=== PATIENT | female | born 1940 | race African-American/Black ===

== ENCOUNTER 2019-09-04 11:06 | Observation (INO) ==
[2019-09-04 12:19] LABS: Basophils # 0.1 10*3/uL (0.0-0.2); Basophils % 0.4 % (0.0-0.8); Eosinophils # 0.6 10*3/uL (0.0-0.87); Eosinophils % 4.5 % (0.00-10.9); Hematocrit 33.8 VOL% (35.7-47.0); Hemoglobin 11.1 GM/DL (12.0-16.0); Immature Granulocytes % 0.6 %; Immature Granulocytes Absolute 0.08 #; Lymphocytes # 2.3 10*3/uL (1.4-4.0); Lymphocytes % 16.2 % (21.3-54.2); Mean Corpuscular HGB Conc 32.8 GM/DL (32-36); Mean Corpuscular Volume 80.7 FL (87-102); Mean Platelet Volume 9.2 FL (9.6-12.0); Monocytes % 3.6 % (1.7-12.7); Neutrophils % 74.7 % (38.7-73.9); Platelet Count 246 T/CUMM (130-400); Red Blood Count 4.19 MC/CUMM (3.8-5.5); Red Cell Distribution Width 16.4 % (9.3-17.3); White Blood Count 14.1 T/CUMM (4-12)
[2019-09-04 12:30] LABS: Albumin 3.4 G/DL (3.4-5.0); Bilirubin,Total 0.5 MG/DL (0.2-1.0); Calcium 9.3 MG/DL (8.5-10.1); Osmolality,Calculated 294.3 MOS/KG (273-304)
[2019-09-04 13:28] LABS: ABG Base Excess -3.3 MMOL/L (-2.5-2.5); ABG HCO3 21.7 MMOL/L (20-26); ABG Oxygen Saturation 98.1 % (95-100); ABG PH 7.401 (7.35-7.45); ABG TCO2 17.1 MMOL/L (23-27); Allen Test Positive
[2019-09-04] MEDS ORDERED: ALBUTEROL/IPRATROPIUM 3 ML NEB RESP TX PRN (13:39)
[2019-09-04] MEDS ORDERED: ONDANSETRON 4 MG/2 ML VIAL IV PRN (15:40)
[2019-09-04] MEDS ORDERED: ACETAMINOPHEN 325 MG TABLET PO PRN (15:40)
[2019-09-04] MEDS ORDERED: BISACODYL 5 MG TABLET PO PRN (15:40)
[2019-09-04] MEDS ORDERED: NITROGLYCERIN SL 0.4 MG TABLET SL PRN (15:44)
[2019-09-04] MEDS ORDERED: SODIUM CHLORIDE 0.9% 1,000 ML IV SCH (16:00)
[2019-09-04 16:17] LABS: Risk Ratio 2.75; VLDL CHOLESTEROL 22.4 MG/DL
[2019-09-04] MEDS ORDERED: clonazePAM 0.5 MG TABLET PO PRN (18:00)
[2019-09-04] MEDS: ALBUTEROL/IPRATROPIUM 3 ML NEB RESP TX SCH (19:50)
[2019-09-04] MEDS ORDERED: LOSARTAN 50 MG TABLET PO SCH (21:00)
[2019-09-04] MEDS: SODIUM CHLORIDE 0.45% 1,000 ML IV SCH (21:45)
[2019-09-04] MEDS: cefTRIAXone 1,000 MG in SYRINGE 1 EACH IV SCH (21:46)
[2019-09-04] MEDS: AZITHROMYCIN INJ 500 MG in SODIUM CHLORIDE 0.9% 250 ML IV SCH (21:46)
[2019-09-04] MEDS: DOCUSATE SODIUM 100 MG CAPSULE PO SCH (21:47)
[2019-09-04] MEDS: ENOXAPARIN 30 MG/0.3 ML SYRINGE SUBCUT SCH (21:47)
[2019-09-04] MEDS: BENZONATATE 100 MG CAPSULE PO SCH (21:47)
[2019-09-04] MEDS: SIMVASTATIN 20 MG TABLET PO SCH (21:51)
[2019-09-04 23:46] LABS: Apearance,Urine CLEAR (Clear); Bacteria,Urine Occasional /HPF (Few); Bilirubin,Urine Negative (Negative); Blood, Urine Negative (Negative); Glucose,Urine (UA) Negative (Negative); Ketones,Urine Negative (Negative); Nitrite,Urine Negative (Negative); Protein,Urine Negative; RBC,Urine 3 /HPF (0-4); Squamous Epithelial Cell,Urine Occasional /HPF (0-10); Urine Color Straw (Yellow); Urine Urobilinogen < 2.0 EU/DL (0.2-1.0); WBC,Urine 7 /HPF (0-6)
[2019-09-05] MEDS: ALBUTEROL/IPRATROPIUM 3 ML NEB RESP TX SCH ×4 (00:40→20:13)
[2019-09-05 05:26] LABS: Basophils # 0.1 10*3/uL (0.0-0.2); Basophils % 0.4 % (0.0-0.8); Eosinophils # 0.5 10*3/uL (0.0-0.87); Eosinophils % 3.9 % (0.00-10.9); Hemoglobin 10.1 GM/DL (12.0-16.0); Immature Granulocytes % 0.4 %; Immature Granulocytes Absolute 0.05 #; Lymphocytes # 2.4 10*3/uL (1.4-4.0); Lymphocytes % 18.6 % (21.3-54.2); Mean Corpuscular HGB Conc 32.6 GM/DL (32-36); Mean Corpuscular Volume 81.2 FL (87-102); Mean Platelet Volume 9.5 FL (9.6-12.0); Monocytes % 5.5 % (1.7-12.7); Neutrophils % 71.2 % (38.7-73.9); Platelet Count 226 T/CUMM (130-400); Red Blood Count 3.82 MC/CUMM (3.8-5.5); Red Cell Distribution Width 16.4 % (9.3-17.3); White Blood Count 12.7 T/CUMM (4-12)
[2019-09-05 05:58] LABS: Calcium 8.7 MG/DL (8.5-10.1); Osmolality,Calculated 297.1 MOS/KG (273-304)
[2019-09-05] MEDS ORDERED: ALLOPURINOL 100 MG TABLET PO SCH (09:00)
[2019-09-05] MEDS: predniSONE 20 MG TABLET PO SCH (09:14)
[2019-09-05] MEDS: BENZONATATE 100 MG CAPSULE PO SCH ×3 (09:14→21:35)
[2019-09-05] MEDS: DOCUSATE SODIUM 100 MG CAPSULE PO SCH ×2 (09:15→21:35)
[2019-09-05] MEDS: cloNIDine 0.1 MG TABLET PO SCH (09:15)
[2019-09-05] MEDS: PANTOPRAZOLE 40 MG TABLET PO SCH (09:15)
[2019-09-05] MEDS: ASPIRIN EC 81 MG TABLET PO SCH (09:15)
[2019-09-05] MEDS: METOPROLOL SUCCINATE XL 50 MG TABLET PO SCH (09:15)
[2019-09-05] MEDS: OMEGA 3 ACID ETHYL ESTERS 1 GM CAPSULE PO SCH (09:15)
[2019-09-05] MEDS: SODIUM CHLORIDE 0.45% 1,000 ML IV SCH ×2 (16:03→18:01)
[2019-09-05] MEDS: AZITHROMYCIN INJ 500 MG in SODIUM CHLORIDE 0.9% 250 ML IV SCH (21:35)
[2019-09-05] MEDS: cefTRIAXone 1,000 MG in SYRINGE 1 EACH IV SCH (21:35)
[2019-09-05] MEDS: ENOXAPARIN 30 MG/0.3 ML SYRINGE SUBCUT SCH (21:35)
[2019-09-05] MEDS: guaiFENesin/DM ER 600-30 MG TABLET PO PRN (21:35)
[2019-09-05] MEDS: SIMVASTATIN 20 MG TABLET PO SCH (21:35)
[2019-09-06] MEDS: ALBUTEROL/IPRATROPIUM 3 ML NEB RESP TX SCH ×2 (00:42→07:39)
[2019-09-06 05:52] LABS: Basophils % 0.1 % (0.0-0.8); Hematocrit 27.2 VOL% (35.7-47.0); Immature Granulocytes % 0.7 %; Immature Granulocytes Absolute 0.07 #; Lymphocytes # 1.2 10*3/uL (1.4-4.0); Lymphocytes % 11.9 % (21.3-54.2); Mean Corpuscular HGB Conc 33.1 GM/DL (32-36); Mean Corpuscular Volume 80.5 FL (87-102); Mean Platelet Volume 10.1 FL (9.6-12.0); Monocytes % 3.9 % (1.7-12.7); Neutrophils % 83.4 % (38.7-73.9); Platelet Count 211 T/CUMM (130-400); Red Blood Count 3.38 MC/CUMM (3.8-5.5); Red Cell Distribution Width 16.4 % (9.3-17.3); White Blood Count 9.7 T/CUMM (4-12)
[2019-09-06 06:19] LABS: Albumin 2.7 G/DL (3.4-5.0); Calcium 8.3 MG/DL (8.5-10.1)
[2019-09-06] MEDS: guaiFENesin/DM ER 600-30 MG TABLET PO PRN (10:12)
[2019-09-06] MEDS: BENZONATATE 100 MG CAPSULE PO SCH (10:12)
[2019-09-06] MEDS: METOPROLOL SUCCINATE XL 50 MG TABLET PO SCH (10:13)
[2019-09-06] MEDS: PANTOPRAZOLE 40 MG TABLET PO SCH (10:13)
[2019-09-06] MEDS: predniSONE 20 MG TABLET PO SCH (10:13)
[2019-09-06] MEDS: OMEGA 3 ACID ETHYL ESTERS 1 GM CAPSULE PO SCH (10:13)
[2019-09-06] MEDS: ASPIRIN EC 81 MG TABLET PO SCH (10:13)
[2019-09-06] MEDS: cloNIDine 0.1 MG TABLET PO SCH (10:13)
[2019-09-06] MEDS: DOCUSATE SODIUM 100 MG CAPSULE PO SCH (10:14)
[2019-09-06 13:39] VITALS: BP 179/74
== END 2019-09-06 14:48 | disposition home or self-care (01) ==
LOC: N.ED 11:06 → N.EDINP 11:06 → N.TELES 17:45
PROVIDERS: ADMIT Internal Medicine; ATTEND Internal Medicine

== ENCOUNTER 2022-09-16 15:01 | Inpatient (IN) ==
[2022-09-16 18:50] LABS: Basophils % 0.1 % (0.0-0.8); Eosinophils # 0.1 10*3/uL (0.0-0.87); Eosinophils % 0.7 % (0.00-10.9); Hematocrit 27.6 VOL% (35.7-47.0); Hemoglobin 8.8 GM/DL (12.0-16.0); Immature Granulocytes % 0.7 %; Immature Granulocytes Absolute 0.09 #; Lymphocytes # 1.9 10*3/uL (1.4-4.0); Lymphocytes % 14.2 % (21.3-54.2); Mean Corpuscular HGB Conc 31.9 GM/DL (32-36); Mean Corpuscular Volume 85.7 FL (87-102); Mean Platelet Volume 9.1 FL (9.6-12.0); Monocytes # 0.4 10*3/uL (0.11-0.8); Monocytes % 3.2 % (1.7-12.7); Neutrophils % 81.1 % (38.7-73.9); Platelet Count 268 T/CUMM (130-400); Red Blood Count 3.22 MC/CUMM (3.8-5.5); Red Cell Distribution Width 17.1 % (9.3-17.3); White Blood Count 13.7 T/CUMM (4-12)
[2022-09-16 19:08] LABS: INR 0.9; PT Patient Result 10.1 SECS (10.1-12.1)
[2022-09-16 19:12] LABS: Alanine Aminotransferase 26 U/L (13-56); Albumin 3.5 G/DL (3.4-5.0); Alkaline Phosphatase 107 U/L (45-117); Aspartate Amino Transferase 12 U/L (0-37); Bilirubin,Total < 0.39 MG/DL (0.20-1.00); Blood Urea Nitrogen 63 MG/DL (7-18); Calcium 9.6 MG/DL (8.5-10.1); Carbon Dioxide 23 MMOL/L (21-32); Chloride 110 MMOL/L (98-107); Glucose 113 MG/DL (74-106); Potassium 5.3 MMOL/L (3.5-5.1); Sodium 143 MMOL/L (136-145); Total Protein 7.6 G/DL (6.4-8.2)
[2022-09-16] MEDS ORDERED: MORPHINE 2 MG/1 ML SYRINGE IV STA (19:52)
[2022-09-16] MEDS ORDERED: ONDANSETRON 4 MG/2 ML VIAL IV ONE (19:52)
[2022-09-16 22:46] LABS: Bacteria,Urine Occasional /HPF (Few); Mucus,Urine Occasional /LPF (Occasional)
[2022-09-16 22:48] LABS: Urine Appearance Clear (Clear); Urine Color Yellow (Yellow)
[2022-09-16 22:49] LABS: Bilirubin,Urine Negative (Negative); Blood, Urine Negative (Negative); Glucose,Urine (UA) Negative (Negative); Ketones,Urine Negative (Negative); Nitrite,Urine Negative (Negative); Protein,Urine Negative (Negative); Urine Specific Gravity 1.015 (1.001-1.035); Urine Urobilinogen 0.2 eU/dL (<2.0)
[2022-09-16] MEDS ORDERED: ENOXAPARIN 80 MG/0.8 ML SYRINGE SUBCUT ONE (22:50)
[2022-09-16] MEDS ORDERED: guaiFENesin/DM ER 600-30 MG TABLET PO PRN (22:58)
[2022-09-16] MEDS ORDERED: ALBUTEROL/IPRATROPIUM 3 ML NEB RESP TX PRN (22:58)
[2022-09-16] MEDS ORDERED: NICOTINE 21 MG/24 HR PATCH TRANSDERM PRN (22:58)
[2022-09-16] MEDS ORDERED: diphenhydrAMINE CAP 25 MG CAPSULE PO PRN (22:58)
[2022-09-16] MEDS ORDERED: ACETAMINOPHEN 325 MG TABLET PO PRN (22:58)
[2022-09-16] MEDS ORDERED: MORPHINE 2 MG/1 ML SYRINGE IV PRN (22:58)
[2022-09-16] MEDS ORDERED: ZALEPLON 5 MG CAPSULE PO PRN (22:58)
[2022-09-16] MEDS ORDERED: hydrALAZINE 20 MG/1 ML VIAL IV PRN (22:58)
[2022-09-16] MEDS ORDERED: ONDANSETRON 4 MG/2 ML VIAL IV PRN (22:58)
[2022-09-17] MEDS: SODIUM CHLORIDE 0.9% 1,000 ML IV SCH ×2 (01:46→15:40)
[2022-09-17 06:30] LABS: Basophils % 0.2 % (0.0-0.8); Eosinophils # 0.2 10*3/uL (0.0-0.87); Hematocrit 26.6 VOL% (35.7-47.0); Hemoglobin 8.5 GM/DL (12.0-16.0); Immature Granulocytes % 0.4 %; Immature Granulocytes Absolute 0.04 #; Lymphocytes # 2.2 10*3/uL (1.4-4.0); Lymphocytes % 22.7 % (21.3-54.2); Mean Corpuscular Volume 84.7 FL (87-102); Mean Platelet Volume 9.2 FL (9.6-12.0); Monocytes # 0.5 10*3/uL (0.11-0.8); Monocytes % 4.9 % (1.7-12.7); Neutrophils % 69.8 % (38.7-73.9); Platelet Count 250 T/CUMM (130-400); Red Blood Count 3.14 MC/CUMM (3.8-5.5); Red Cell Distribution Width 17.2 % (9.3-17.3); White Blood Count 9.6 T/CUMM (4-12)
[2022-09-17 06:51] LABS: Calcium 9.5 MG/DL (8.5-10.1); Osmolality,Calculated 301.1 MOS/KG (273-304); Potassium 5.1 MMOL/L (3.5-5.1)
[2022-09-17] MEDS: PANTOPRAZOLE 40 MG TABLET PO SCH (08:55)
[2022-09-17] MEDS ORDERED: MELATONIN 3 MG TABLET PO PRN (11:58)
[2022-09-17] MEDS ORDERED: ZALEPLON 5 MG CAPSULE PO PRN (14:27)
[2022-09-17] MEDS: FERROUS SULFATE 325 MG TABLET PO SCH (16:16)
[2022-09-17] MEDS: SIMVASTATIN 20 MG TABLET PO SCH (16:16)
[2022-09-17] MEDS ORDERED: PANTOPRAZOLE 40 MG TABLET PO SCH (16:30)
[2022-09-17] MEDS: POLYETHYLENE GLYCOL POWDER 17 GM PACK PO SCH ×2 (20:31)
[2022-09-17] MEDS: cloNIDine 0.1 MG TABLET PO SCH (20:31)
[2022-09-17] MEDS ORDERED: traZODone 50 MG TABLET PO PRN (21:00)
[2022-09-17] MEDS ORDERED: LOSARTAN 50 MG TABLET PO SCH (21:00)
[2022-09-17] MEDS ORDERED: MAGNESIUM HYDROXIDE SUSP 30 ML UDCUP PO PRN (22:28)
[2022-09-18] MEDS ORDERED: LABETALOL 20 MG/4 ML SYRINGE IV PRN (02:17)
[2022-09-18 05:39] LABS: Basophils % 0.3 % (0.0-0.8); Eosinophils # 0.3 10*3/uL (0.0-0.87); Eosinophils % 2.8 % (0.00-10.9); Hematocrit 24.8 VOL% (35.7-47.0); Hemoglobin 8.1 GM/DL (12.0-16.0); Immature Granulocytes % 0.4 %; Immature Granulocytes Absolute 0.04 #; Lymphocytes # 2.2 10*3/uL (1.4-4.0); Lymphocytes % 23.1 % (21.3-54.2); Mean Corpuscular HGB Conc 32.7 GM/DL (32-36); Mean Corpuscular Volume 83.5 FL (87-102); Mean Platelet Volume 8.6 FL (9.6-12.0); Monocytes # 0.5 10*3/uL (0.11-0.8); Monocytes % 5.5 % (1.7-12.7); Neutrophils % 67.9 % (38.7-73.9); Platelet Count 226 T/CUMM (130-400); Red Blood Count 2.97 MC/CUMM (3.8-5.5); Red Cell Distribution Width 17.1 % (9.3-17.3); White Blood Count 9.7 T/CUMM (4-12)
[2022-09-18 06:09] LABS: Osmolality,Calculated 300.1 MOS/KG (273-304); Potassium 4.5 MMOL/L (3.5-5.1)
[2022-09-18] MEDS ORDERED: TRIAMTERENE/HCTZ 37.5-25 MG TABLET PO SCH (09:00)
[2022-09-18] MEDS: OMEGA 3 ACID ETHYL ESTERS 1 GM CAPSULE PO SCH (09:03)
[2022-09-18] MEDS: MAGNESIUM OXIDE 400 MG TABLET PO SCH (09:03)
[2022-09-18] MEDS: METOPROLOL SUCCINATE XL 50 MG TABLET PO SCH (09:03)
[2022-09-18] MEDS: ASPIRIN EC 81 MG TABLET PO SCH (09:04)
[2022-09-18] MEDS: CIPROFLOXACIN 500 MG TABLET PO SCH (09:04)
[2022-09-18] MEDS: CHOLECALCIFEROL 1,000 UNIT TABLET PO SCH (09:04)
[2022-09-18] MEDS: FERROUS SULFATE 325 MG TABLET PO SCH ×2 (09:04→16:33)
[2022-09-18] MEDS: PANTOPRAZOLE 40 MG TABLET PO SCH (09:04)
[2022-09-18] MEDS: allopurinoL 100 MG TABLET PO SCH (09:04)
[2022-09-18] MEDS: POLYETHYLENE GLYCOL POWDER 17 GM PACK PO SCH ×2 (09:06→20:14)
[2022-09-18] MEDS: SODIUM CHLORIDE 0.9% 1,000 ML IV SCH (11:35)
[2022-09-18] MEDS: SIMVASTATIN 20 MG TABLET PO SCH (16:33)
[2022-09-18] MEDS ORDERED: MONTELUKAST 10 MG TABLET PO SCH (17:00)
[2022-09-18] MEDS: cloNIDine 0.1 MG TABLET PO SCH (20:16)
[2022-09-19] MEDS: SODIUM CHLORIDE 0.9% 1,000 ML IV SCH (01:15)
[2022-09-19 06:03] LABS: Basophils % 0.2 % (0.0-0.8); Eosinophils # 0.4 10*3/uL (0.0-0.87); Hematocrit 23.2 VOL% (35.7-47.0); Hemoglobin 7.5 GM/DL (12.0-16.0); Immature Granulocytes % 0.3 %; Immature Granulocytes Absolute 0.03 #; Lymphocytes # 2.3 10*3/uL (1.4-4.0); Lymphocytes % 24.6 % (21.3-54.2); Mean Corpuscular HGB Conc 32.3 GM/DL (32-36); Mean Corpuscular Volume 84.4 FL (87-102); Mean Platelet Volume 8.7 FL (9.6-12.0); Monocytes # 0.5 10*3/uL (0.11-0.8); Monocytes % 5.8 % (1.7-12.7); Neutrophils % 65.1 % (38.7-73.9); Platelet Count 211 T/CUMM (130-400); Red Blood Count 2.75 MC/CUMM (3.8-5.5); Red Cell Distribution Width 17.6 % (9.3-17.3); White Blood Count 9.4 T/CUMM (4-12)
[2022-09-19 06:17] LABS: Calcium 8.5 MG/DL (8.5-10.1); Osmolality,Calculated 293.4 MOS/KG (273-304)
[2022-09-19] MEDS ORDERED: cloNIDine 0.1 MG TABLET PO SCH (09:00)
[2022-09-19] MEDS ORDERED: FERRIC GLUCONATE COMPLEX 125 MG in SODIUM CHLORIDE 0.9% 100 ML IV SCH (09:00)
[2022-09-19] MEDS: allopurinoL 100 MG TABLET PO SCH (09:09)
[2022-09-19] MEDS: MAGNESIUM OXIDE 400 MG TABLET PO SCH (09:09)
[2022-09-19] MEDS: PANTOPRAZOLE 40 MG TABLET PO SCH (09:09)
[2022-09-19] MEDS: ASPIRIN EC 81 MG TABLET PO SCH (09:09)
[2022-09-19] MEDS: FERROUS SULFATE 325 MG TABLET PO SCH (09:09)
[2022-09-19] MEDS: CHOLECALCIFEROL 1,000 UNIT TABLET PO SCH (09:09)
[2022-09-19] MEDS: OMEGA 3 ACID ETHYL ESTERS 1 GM CAPSULE PO SCH (09:10)
[2022-09-19] MEDS: METOPROLOL SUCCINATE XL 50 MG TABLET PO SCH (09:10)
[2022-09-19] MEDS: CIPROFLOXACIN 500 MG TABLET PO SCH (09:10)
[2022-09-19] MEDS: POLYETHYLENE GLYCOL POWDER 17 GM PACK PO SCH (09:35)
[2022-09-19 12:37] VITALS: BP 146/37
[2022-09-20] MEDS ORDERED: LINACLOTIDE 145 MCG CAPSULE PO SCH (07:30)
[2022-09-20] MEDS ORDERED: FERROUS SULFATE 325 MG TABLET PO SCH (08:00)
== END 2022-09-19 14:19 | disposition swing bed (61) | DRG 536 ==
LOC: N.ED 15:01 → N.EDINP 22:58 → N.3E 09-17 02:20
PROVIDERS: ADMIT Hospitalist; ATTEND Hospitalist